=== PATIENT | female | born 1990 | race African-American/Black ===

== ENCOUNTER 2018-04-18 13:25 | Inpatient (IN) ==
[2018-04-18] MEDS ORDERED: BUTORPHANOL 2 MG/ML VIAL IV PRN (14:18)
[2018-04-18] MEDS ORDERED: ONDANSETRON 4 MG/2 ML VIAL IV PRN ×2 (14:18→23:57)
[2018-04-18] MEDS: LACTATED RINGERS 1,000 ML IV SCH ×3 (14:20→21:25)
[2018-04-18] MEDS ORDERED: OXYTOCIN/LR 20 UNIT/1,000 ML BAG IV SCH (14:30)
[2018-04-18 14:54] LABS: Basophils % 0.1 % (0.0-0.8); Eosinophils % 0.4 % (0.00-10.9); Hemoglobin 10.4 GM/DL (12.0-16.0); Immature Granulocytes % 1.1 %; Immature Granulocytes Absolute 0.08 #; Lymphocytes # 1.4 10*3/uL (1.4-4.0); Lymphocytes % 17.9 % (21.3-54.2); Mean Corpuscular HGB Conc 32.5 GM/DL (32-36); Mean Corpuscular Hemoglobin 29 PG (27-34); Mean Corpuscular Volume 89.6 FL (87-102); Mean Platelet Volume 10.1 FL (9.6-12.0); Monocytes % 13.2 % (1.7-12.7); Neutrophils # 5.1 10*3/uL (1.4-7.4); Neutrophils % 67.3 % (38.7-73.9); Platelet Count 221 T/CUMM (130-400); Red Blood Count 3.57 MC/CUMM (3.8-5.5); Red Cell Distribution Width 12.8 % (9.3-17.3); White Blood Count 7.6 T/CUMM (4-12)
[2018-04-18] MEDS ORDERED: diphenhydrAMINE 50 MG/1 ML VIAL IV PRN (19:17)
[2018-04-18] MEDS ORDERED: CITRIC ACID/SODIUM CITRATE 30 ML UDCUP PO ONE (19:17)
[2018-04-18] MEDS ORDERED: PROMETHAZINE 25 MG/1 ML VIAL IM PRN (19:17)
[2018-04-18] MEDS ORDERED: FAMOTIDINE 20 MG/2 ML VIAL IV ONE (19:17)
[2018-04-18] MEDS ORDERED: METHYLERGONOVINE 0.2 MG/1 ML AMP ONE ×2 (19:17→23:17)
[2018-04-18] MEDS ORDERED: ePHEDrine 50 MG/ML AMP IV PRN (19:17)
[2018-04-18] MEDS ORDERED: NALOXONE 0.4 MG/ML VIAL IV PRN (19:17)
[2018-04-18] MEDS ORDERED: hydrOXYzine HCL 25 MG/1 ML VIAL IM PRN (19:17)
[2018-04-18] MEDS ORDERED: fentaNYL 2 MCG/ROPIV 0.2% EPID 100 ML EPIDURAL SCH (19:30)
[2018-04-18 21:43] LABS: Apearance,Urine CLEAR (Clear); Bilirubin,Urine Negative (Negative); Blood, Urine Negative (Negative); Glucose,Urine (UA) Negative (Negative); Ketones,Urine 80 mg/dL (Negative); Mucus,Urine Occasional /LPF (Occasional); Nitrite,Urine Negative (Negative); Protein,Urine Negative; RBC,Urine 1 /HPF (0-4); Squamous Epithelial Cell,Urine Occasional /HPF (0-10); Urine Color Yellow (Yellow); Urine Specific Gravity 1.012 (1.001-1.035); Urine Urobilinogen < 2.0 EU/DL (0.2-1.0); WBC,Urine <1 /HPF (0-6)
[2018-04-18] MEDS ORDERED: LIDOCAINE 1% 50 ML VIAL ONE (23:16)
[2018-04-18] MEDS ORDERED: miSOPROStol 200 MCG TABLET ONE (23:16)
[2018-04-18] MEDS ORDERED: METHYLERGONOVINE 0.2 MG/1 ML AMP IM ONE (23:50)
[2018-04-18] MEDS ORDERED: OXYTOCIN/LR 20 UNIT/1,000 ML BAG IV ONE (23:57)
[2018-04-18] MEDS ORDERED: LANOLIN 50% CREAM 0.3 OZ TUBE TOP PRN (23:57)
[2018-04-18] MEDS ORDERED: WITCH HAZEL PADS 100/JAR TOP PRN (23:57)
[2018-04-18] MEDS ORDERED: RHO(D) IMMUNE GLOBULIN 300 MCG SYRINGE IM ONE (23:57)
[2018-04-18] MEDS ORDERED: BISACODYL 10 MG SUPP RECTAL PRN (23:57)
[2018-04-18] MEDS ORDERED: MEASLES/MUMPS/RUBELLA VACCINE 0.5 ML VIAL SUBCUT ONE (23:57)
[2018-04-18] MEDS ORDERED: oxyCODONE/ACETAMINOPHEN 5-325 MG TABLET PO PRN (23:57)
[2018-04-18] MEDS ORDERED: HYDROCORTISONE 2.5% RECTAL CREAM 30 GM TUBE TOP PRN (23:57)
[2018-04-18] MEDS ORDERED: ACETAMINOPHEN 325 MG TABLET PO PRN (23:57)
[2018-04-18] MEDS ORDERED: DIPH/TET/ACEL PERT BOOSTER VACCINE 0.5 ML VIAL IM ONE (23:57)
[2018-04-18] MEDS ORDERED: BENZOCAINE 20%/MENTHOL 0.5% SPRAY 56 GM CAN TOP PRN (23:57)
[2018-04-19] MEDS: IBUPROFEN 800 MG TABLET PO PRN ×3 (02:39→18:30)
[2018-04-19 07:11] LABS: Basophils % 0.1 % (0.0-0.8); Eosinophils % 0.1 % (0.00-10.9); Hematocrit 31.1 VOL% (35.7-47.0); Hemoglobin 10.5 GM/DL (12.0-16.0); Immature Granulocytes % 0.6 %; Immature Granulocytes Absolute 0.09 #; Lymphocytes # 1.4 10*3/uL (1.4-4.0); Lymphocytes % 8.5 % (21.3-54.2); Mean Corpuscular HGB Conc 33.8 GM/DL (32-36); Mean Corpuscular Hemoglobin 29 PG (27-34); Mean Corpuscular Volume 85.4 FL (87-102); Mean Platelet Volume 10.7 FL (9.6-12.0); Monocytes # 1.8 10*3/uL (0.11-0.8); Monocytes % 11.2 % (1.7-12.7); Neutrophils # 12.8 10*3/uL (1.4-7.4); Neutrophils % 79.5 % (38.7-73.9); Platelet Count 219 T/CUMM (130-400); Red Blood Count 3.64 MC/CUMM (3.8-5.5); Red Cell Distribution Width 12.8 % (9.3-17.3); White Blood Count 16.1 T/CUMM (4-12)
[2018-04-19] MEDS: DOCUSATE SODIUM 100 MG CAPSULE PO SCH ×2 (08:15→21:46)
[2018-04-19] MEDS: oxyCODONE/ACETAMINOPHEN 5-325 MG TABLET PO PRN ×2 (12:51→18:29)
[2018-04-20] MEDS: IBUPROFEN 800 MG TABLET PO PRN (09:12)
[2018-04-20] MEDS: DOCUSATE SODIUM 100 MG CAPSULE PO SCH (10:12)
[2018-04-20 12:31] VITALS: BP 102/58
== END 2018-04-20 14:10 | disposition home or self-care (01) | DRG 560 ==
LOC: N.LDOUT 13:25 → N.LD 13:27 → N.OB 04-19 02:17
PROVIDERS: ADMIT Obstetrics & Gynecology; ATTEND Obstetrics & Gynecology